=== PATIENT | female | born 1960 | race Caucasian/White ===

== ENCOUNTER 2024-04-21 15:19 | Outpatient (AMB) | payer OTHER, SELFPAY ==
--- NOTE | 2024-04-21 15:22 | MHC.PC.OV ---
Vital Signs 04/21/24 15:23 Height 5 ft 6 in Weight 135 lb 8 oz BMI 21.9 BP 104/64 Blood Pressure Location Rt brachial Position Sitting Respiration 14 Pulse 68 Pulse Source Pulse Oximeter Temp 97.8 F Temp Source Temporal Artery Scan Pulse Oximetry (%) 99 Oxygen Delivery Method Room Air Intake Visit Reasons: establish care Intake Note: Patient woud like to see if provider would be able to check right ear, and would like to discuss thyroid. Opener Verifier [employer] Required: No Accompanied by: Self / Same As Patient Allergies benzoyl peroxide Adverse Reaction (Intermediate, Verified 04/21/24 15:50) Rash wheat Adverse Reaction (Intermediate, Verified 04/21/24 15:50) Rash erythromycin base Adverse Reaction (Verified 04/21/24 15:50) Rash Medication List - Last Reconciled 04/21/24 by Za Marte, ADMISSIONS REPRESENTATIVE- cetirizine (Zyrtec) 10 mg PO DAILY PRN cholecalciferol (vitamin D3) 50 mcg PO DAILY estradiol 1 patch transdermal .Qwk ezetimibe 10 mg PO DAILY levothyroxine 50 mcg PO DAILY liothyronine 15 mcg PO QAM paroxetine HCl 10 mg PO DAILY progesterone micronized 100 mg PO QAM zolpidem 2.5 mg PO BEDTIME PRN Tobacco use date assessed: 04/21/24 Dental Screening Dental Screen Date: 04/21/24 Did you have a dental visit in the last 12 months?: Yes Did you have a dental problem in the last 6 months where you did not have access to dental care?: No Was dental information given to patient?: Patient has dentist HPI HPI Comments History of Present Illness Details 63 y/o F hypothyroid, MEHRAN, Hyperlipidemia, seasonal allergies, Vit D def, menopause, [place] with hearing aides Surgery: c section, malignant mole & sentinal node removal (Dr Fortune), bilat cataract extraction Health Maintenance: Colon Mammo PAP DEXA Reports UTD on all of her HM items. I will have to request records. 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 Right ear while on the phone at work, does not think she is hearing right. Does wear hearing aides. Went to [facility] told of blockage. No at home tx. Hypothyroid - reports euthyroid on last labs done in March. Does not follow w/ Endo.Denies hx of thyroidectomy, nodules or imaging. Ca any sx. MEHRAN - well controlled w/ paxil. Not in counseling. Ambien PRN w sparing use. Feels paxil helps her sleep. Edu on cardiac risks w/ this medication. HLD - on zetia. Reports last labs done 03/2024. 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 1. Little interest or pleasure in doing things: not at all 2. Feeling down, depressed, or hopeless: not at all 3. Trouble falling or staying asleep, or sleeping too much: several days 4. Feeling tired or having little energy: several days 5. Poor appetite or overeating: several days 6. Feeling bad about yourself - or that you are a failure or have let yourself or your family down: not at all 7. Trouble concentrating on things, such as reading the newspaper or watching television: not at all 8. Moving or speaking so slowly that other people could have noticed. Or the opposite - being so fidgety or restless that you have been moving around a lot more than usual: not at all 9. Thoughts that you would be better off or of hurting yourself in some way: not at all Total score: 3 Depression Screening Interpretation: Negative Depression Screening Done: Yes 83874 - PHQ-9 Billing: Yes Source: Developed by Drs. Adria Ruby, Dari Christy, Dominic Sheridan and colleagues, with an educational michelle from [employer] Thrive Questionnaire Date Thrive assessed: 04/21/24 I am a: Patient What is your living situation today?: I have a steady place to live Within the past 12 months, did the food you bought not last and you didn't have the money to get more?: Never true Within the past 12 months, did you worry whether your food would run out before you got money to buy more?: Never true Do you have trouble paying for medicines?: No Do you have trouble getting transportation to medical appointments?: No Do you have trouble paying your heating and electricity bill?: No Do you have trouble taking care of your child, family member or friend?: No Do you have trouble with day-to-day activities such as bathing, preparing meals, shopping, managing finances, etc.?: No Are you currently unemployed and looking for a job?: No Are you interested in more education?: No Please select the resources that you would like help with: None Currently or been in a relationship where the following occur: no concerns reported THRIVE Score: 0 AUDIT C Alcohol Use Questionnaire (AUDIT-C) 1. How often do you have a drink containing alcohol?: Monthly or less 2. How many drinks containing alcohol do you have on a typical day when you are drinking?: 1 or 2 3. How often do you have six or more drinks on one occasion?: Never Total Score: 1 Score Reviewed/Action Taken: Yes MEHRAN-7 AMB Questionnaire MEHRAN-7 Date MEHRAN - 7 assessed: 04/21/24 Feeling nervous, anxious, or on edge: 1 = Several days Not being able to stop or control worryin = Not at all Worrying too much about different things: 1 = Several days Trouble relaxin = Not at all Being so restless that it is hard to sit still: 0 = Not at all Becoming easily annoyed or irritable: 1 = Several days Feeling afraid as if something awful might happen: 0 = Not at all Total MEHRAN-7 score (0-4 normal; 5-9 mild; 10-14 moderate; 15-21 severe): 3 Source: Developed by Drs. Adria Ruby, Dari Christy, Dominic Sheridan and colleagues, with an educational michelle from [employer] MEHRAN-7 Assessment Billing MEHRAN-7 Assessment Tool: MEHRAN-7 Assessment 03674 Review of Systems Const All systems reviewed & are unremarkable except as noted in HPI and below Physical exam (Primary Care) Vital Signs: Last Vital Signs Temp 97.8 F 04/21/24 15:23 Pulse 68 04/21/24 15:23 Resp 14 04/21/24 15:23 BP 104/64 04/21/24 15:23 Pulse Ox 99 04/21/24 15:23 Oxygen Delivery Method Room Air 04/21/24 15:23 BMI result Body Mass Index 21.9 Tobacco/Smoking Status: Tobacco use Status Tobacco use date assessed 04/21/24 04/21/24 15:44 Patient Tobacco Use Status Never used Tobacco 04/21/24 15:44 e-Cigarette/Vaping Use Never Used 04/21/24 15:44 PHQ-9: PHQ-9 Score PHQ-9: Total score 3 04/21/24 15:51 Depression Screening Interpretation: Negative Thrive Assessment: Date of Thrive Assessment Date Thrive assessed 04/21/24 04/21/24 15:44 Currently or been in a relationship where the following occur: no concerns reported Const Other: awake alert, pleasant Cerumen impaction right EAC removed during visit w/o complication. TM intact and clear. 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 Continue Code(s): F41.1 - Generalized anxiety disorder (4) Screening for diabetes mellitus: Code(s): Z13.1 - Encounter for screening for diabetes mellitus (5) Impacted cerumen of right ear: Code(s): H61.21 - Impacted cerumen, right ear Plan: removal today Orders: Orders Comprehensive [place]. Panel Fast 06/28/24 E03.9 - Hypothyroidism, unspecified, E78.00 - Pure hypercholesterolemia, unspecified, F41.1 - Generalized anxiety disorder, Z13.1 - Encounter for screening for diabetes mellitus Lipid Panel 06/28/24 E03.9 - Hypothyroidism, unspecified, E78.00 - Pure hypercholesterolemia, unspecified, F41.1 - Generalized anxiety disorder, Z13.1 - Encounter for screening for diabetes mellitus TSH reflex Free T4 06/28/24 E03.9 - Hypothyroidism, unspecified, E78.00 - Pure hypercholesterolemia, unspecified, F41.1 - Generalized anxiety disorder, Z13.1 - Encounter for screening for diabetes mellitus Hemoglobin A1c 06/28/24 E03.9 - Hypothyroidism, unspecified, E78.00 - Pure hypercholesterolemia, unspecified, F41.1 - Generalized anxiety disorder, Z13.1 - Encounter for screening for diabetes mellitus Microalbumin, Random (w Creat) 06/28/24 E03.9 - Hypothyroidism, unspecified, E78.00 - Pure hypercholesterolemia, unspecified, F41.1 - Generalized anxiety disorder, Z13.1 - Encounter for screening for diabetes mellitus Vitamin D 1,25 dihydroxy 06/28/24 E03.9 - Hypothyroidism, unspecified, E78.00 - Pure hypercholesterolemia, unspecified, F41.1 - Generalized anxiety disorder, Z13.1 - Encounter for screening for diabetes mellitus Patient Instructions: Please RTO in Jul, with fasting labs done 1 week before Sign up for patient portal - best way to access the office. Cont all meds as precribed. 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
[2024-04-21 15:23] VITALS: BP 104/64; PULSE 68; RESP 14; TEMP 36.6; O2SAT 99; BMI 21.9
== END 2024-04-21 16:14 | disposition home or self-care (01) ==
PROVIDERS: Visit Provider Nurse Practitioner Family
DX: E06.3 Autoimmune thyroiditis (principal); E78.00 Pure hypercholesterolemia, unspecified; H61.21 Impacted cerumen, right ear; F41.1 Generalized anxiety disorder; Z13.1 Encounter for screening for diabetes mellitus
CPT/HCPCS: 69210; 99204

== ENCOUNTER 2024-07-13 08:25 | Outpatient (REF) | payer OTHER, SELFPAY ==
[2024-07-13 11:44] LABS: Estimated Average Glucose 111 mg/dL; Hemoglobin A1c % 5.5 % (<6.0)
[2024-07-13 12:24] LABS: Creatinine Urine 113.35 mg/dL
[2024-07-13 15:31] LABS: Alanine Aminotransferase 14 U/L (0-31); Albumin Level 4.1 g/dL (3.5-5.0); Alkaline Phosphatase 47 U/L (39-117); Anion Gap 8 (12-20); Aspartate Amino Transferase 23 U/L (5-31); Bilirubin Total 0.4 mg/dL (0.0-1.0); Blood Urea Nitrogen 13 mg/dL (9-16); Calcium 9.5 mg/dL (8.4-10.2); Carbon Dioxide 31 mmol/L (22-29); Chloride 107 mmol/L (96-108); Cholesterol 218 mg/dL (<200); Estimated Glomerular Filt Rate > 60; Glucose Fasting 85 mg/dL (60-99); HDL Cholesterol 66 mg/dL (>40); LDL Cholesterol Calculated 141 mg/dL (<100); Potassium 4.3 mmol/L (3.3-5.1); Sodium 142 mmol/L (135-145); TSH reflex Free T4 2.53 uIU/mL (0.32-4.0); Total Protein 6.5 g/dL (6.5-8.0); Triglycerides 57 mg/dL (<150)
[2024-07-17 05:13] LABS: VITAMIN D (1,25 OH) D3 43 pg/mL; Vit D (1,25-Dihydroxy) Total 43 pg/mL (18-72); Vitamin D (1,25 OH) D2 <8 pg/mL
== END 2024-07-13 08:26 | disposition home or self-care (01) ==
LOC: HO.WFDLDS 08:25
PROVIDERS: Visit Provider Nurse Practitioner Family
DX: F41.1 Generalized anxiety disorder (principal); Z13.1 Encounter for screening for diabetes mellitus; E78.00 Pure hypercholesterolemia, unspecified; E03.9 Hypothyroidism, unspecified
CPT/HCPCS: 36415; 80053; 80061; 82043; 82570; 82652; 83036; 84443

== ENCOUNTER 2024-07-19 15:18 | Outpatient (AMB) | payer OTHER, SELFPAY ==
--- NOTE | 2024-07-19 13:58 | A.OFFVIS_ITS ---
Intake Intake Visit Reasons: thyroid, labs, hld, MEHRAN Allergies benzoyl peroxide Adverse Reaction (Intermediate, Verified 04/21/24 15:50) Rash wheat Adverse Reaction (Intermediate, Verified 04/21/24 15:50) Rash erythromycin base Adverse Reaction (Verified 04/21/24 15:50) Rash PFSH Medical History (Updated 04/22/24 @ 07:22 by Za Marte, [facility]) H/O Donnie thyroiditis delivery delivered Anxiety High cholesterol Hypothyroidism Surgical History (Updated 04/21/24 @ 15:40 by DAVIDSON Cooley) H/O cataract removal with insertion of prosthetic lens History of removal of skin mole Family History Mother Diabetes Father Diabetes Family/Other Diabetes History of Donnie thyroiditis Social History Housing: House Patient Tobacco Use Status: Never used Tobacco e-Cigarette/Vaping Use: Never Used service: No Current occupational status: employed 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
--- NOTE | 2024-07-19 15:19 | MHC.PC.OV ---
Vital Signs 07/19/24 15:22 Height 5 ft 6 in Weight 134 lb 6 oz BMI 21.7 BP 102/68 Blood Pressure Location Rt brachial Position Sitting Respiration 14 Pulse 57 Pulse Source Pulse Oximeter Pulse Oximetry (%) 94 Oxygen Delivery Method Room Air Intake Visit Reasons: thyroid, labs, hld, MEHRAN Intake Note: follow up on labs Allergies benzoyl peroxide Adverse Reaction (Intermediate, Verified 07/19/24 15:41) Rash wheat Adverse Reaction (Intermediate, Verified 07/19/24 15:41) Rash erythromycin base Adverse Reaction (Verified 07/19/24 15:41) Rash Medication List - Last Reconciled 07/19/24 by Za Marte, LAND SURVEYING MANAGER-BC cetirizine (Zyrtec) 10 mg PO DAILY PRN cholecalciferol (vitamin D3) 50 mcg PO DAILY estradiol 1 patch transdermal .Qwk ezetimibe 10 mg PO DAILY levothyroxine 50 mcg PO DAILY liothyronine 15 mcg PO QAM paroxetine HCl 10 mg PO DAILY progesterone micronized 100 mg PO QAM zolpidem 2.5 mg PO BEDTIME PRN Tobacco use date assessed: 07/19/24 Dental Screening Dental Screen Date: 07/19/24 Did you have a dental visit in the last 12 months?: Yes Did you have a dental problem in the last 6 months where you did not have access to dental care?: No Was dental information given to patient?: Patient has dentist HPI HPI Comments History of Present Illness Details 63 y/o F with MEHRAN, Hyperlipidemia, seasonal allergies, Vit D def, menopause, [place] with hearing aides, osteoporosis, skin cancer, Donnie's thyroiditis, primary insomnia Surgery: c section, malignant mole & sentinal node removal (Dr Fortune), bilat cataract extraction 2021 Social has 1 son Family history: Father age 85, COPD; siblings 1 brother, 3 sisters brother with diabetes, sister with thyroid disease, sister with depression; mother alive with hypertension; brother alive with diabetes; Health Maintenance: Pap smear April 2022 negative per report Mammogram 2019 Colonoscopy 10/2016 DEXA May/2021, repeat 06/2024 results pending managed by Obgyn Eye exam 12/30/2021 Declined flu vaccine Specialists: Derm - [place] Derm routine visits 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 Since last office visit she has been tolerating compliant of all of her therapies. She is taking as directed. She denies any neuro or cardiac complaints. Denies any complaints related to thyroid. Mood is stable. Reports that she recently had a bone density done and we will be reviewing the results at her next marketing budget analyst appointment which is next month. The following labs were reviewed with her today: Labs from 07/13/2024 show a normal electrolytes, normal renal function, normal fasting glucose, hemoglobin A1c 5.5%, normal LFTs, total cholesterol of 218, LDL 141, HDL 66, vitamin-D pending, TSH 2.53, normal urine microalbumin creatinine ratio Elevated apolipoprotein B 136 done 05/06/2023, at the same time her total cholesterol was 281, triglycerides are 62, HDL 79, LDL 190 Labs from 12/02/2023 show total cholesterol 213, triglycerides 66 HDL 68 LDL 144, cardio CRP 6.15 Labs 03/16/2024 show a total cholesterol of 2 2, triglycerides 63, HDL 65, LDL 126, APO B 97 Exam awake alert, pleasant MMM Thyroid nontender, trachea midline RRR LS CTAB No hepatomegaly No edema bilateral lower extremities, normal pedal pulses Plan Continue all medications as directed. Discuss potential referral to Cardiology in the future to see about alternative treatments for hyperlipidemia. She will consider this let me know if she is interested in the future. At this time continue Zetia as she reports side effects to statins in the past. Educated again about her elevated cardiovascular risk given the positive AP O and elevated cardio CRP. She is aware and accepting of these risks. She continues to lead a healthy lifestyle to include diet and exercise. Return to the office in December for complete physical exam, sooner as needed. Previous medical records from [facility] received and reviewed today. This note is constructed using voice recognition software. While every effort has been made to ensure accuracy in hat block bench hand, still errors may have been included Sometimes, these errors may affect the content or meaning of the given sentence . Total time spent caring for the patient today was 30 minutes. This includes time spent before the visit reviewing the chart, time spent during the visit, and time spent after the visit on documentation [facility] Medical History (Updated 07/19/24 @ 16:10 by Za Marte, LAND SURVEYING MANAGER-) H/O Donnie thyroiditis delivery delivered Anxiety High cholesterol Hypothyroidism Surgical History (Updated 04/21/24 @ 15:40 by DAVIDSON Cooley) H/O cataract removal with insertion of prosthetic lens History of removal of skin mole Family History Mother Diabetes Father Diabetes Family/Other Diabetes History of Donnie thyroiditis Social History Housing: House Patient Tobacco Use Status: Never used Tobacco e-Cigarette/Vaping Use: Never Used service: No Current occupational status: employed 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 1. Little interest or pleasure in doing things: not at all 2. Feeling down, depressed, or hopeless: not at all 3. Trouble falling or staying asleep, or sleeping too much: several days 4. Feeling tired or having little energy: not at all 5. Poor appetite or overeating: not at all 6. Feeling bad about yourself - or that you are a failure or have let yourself or your family down: not at all 7. Trouble concentrating on things, such as reading the newspaper or watching television: several days 8. Moving or speaking so slowly that other people could have noticed. Or the opposite - being so fidgety or restless that you have been moving around a lot more than usual: not at all 9. Thoughts that you would be better off or of hurting yourself in some way: not at all Total score: 2 Depression Screening Interpretation: Negative Depression Screening Done: Yes 44466 - PHQ-9 Billing: Yes Source: Developed by Drs. Adria Ruby, Dari Christy, Dominic Sheridan and colleagues, with an educational michelle from [employer]. Thrive Questionnaire Date Thrive assessed: 07/19/24 I am a: Patient What is your living situation today?: I have a steady place to live Within the past 12 months, did the food you bought not last and you didn't have the money to get more?: Never true Within the past 12 months, did you worry whether your food would run out before you got money to buy more?: Never true Do you have trouble paying for medicines?: No Do you have trouble getting transportation to medical appointments?: No Do you have trouble paying your heating and electricity bill?: No Do you have trouble taking care of your child, family member or friend?: No Do you have trouble with day-to-day activities such as bathing, preparing meals, shopping, managing finances, etc.?: No Are you currently unemployed and looking for a job?: No Are you interested in more education?: No Please select the resources that you would like help with: None THRIVE Score: 0 MEHRAN-7 AMB Questionnaire MEHRAN-7 Date MEHRAN - 7 assessed: 07/19/24 Feeling nervous, anxious, or on edge: 0 = Not at all Not being able to stop or control worryin = Not at all Worrying too much about different things: 0 = Not at all Trouble relaxin = Not at all Being so restless that it is hard to sit still: 0 = Not at all Becoming easily annoyed or irritable: 0 = Not at all Feeling afraid as if something awful might happen: 0 = Not at all Total MEHRAN-7 score (0-4 normal; 5-9 mild; 10-14 moderate; 15-21 severe): 0 Source: Developed by Drs. Adria Ruby, Dari Christy, Dominic Sheridan and colleagues, with an educational michelle from [employer]. MEHRAN-7 Assessment Billing MEHRAN-7 Assessment Tool: MEHRAN-7 Assessment 36883 Physical exam (Primary Care) Vital Signs: Last Vital Signs Pulse 57 07/19/24 15:22 Resp 14 07/19/24 15:22 BP 102/68 07/19/24 15:22 Pulse Ox 94 07/19/24 15:22 Oxygen Delivery Method Room Air 07/19/24 15:22 BMI result Body Mass Index 21.7 Tobacco/Smoking Status: Tobacco use Status Tobacco use date assessed 07/19/24 07/19/24 15:23 Patient Tobacco Use Status Never used Tobacco 07/19/24 15:23 e-Cigarette/Vaping Use Never Used 07/19/24 15:23 PHQ-9: PHQ-9 Score PHQ-9: Total score 2 07/19/24 15:27 Depression Screening Interpretation: Negative Thrive Assessment: Date of Thrive Assessment Date Thrive assessed 07/19/24 07/19/24 15:27 Assessment and Plan Assessment & Plan (1) Hypothyroidism: Comment: on levothyroxine and liothyronine; Code(s): E03.9 - Hypothyroidism, unspecified Qualifiers: 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 Continue Code(s): F41.1 - Generalized anxiety disorder (4) Osteoporosis: Code(s): M81.0 - Age-related osteoporosis without current pathological fracture Qualifiers: Osteoporosis type: age-related Presence of current pathological fracture: without current pathological fracture Qualified Code(s): M81.0 - Age-related osteoporosis without current pathological fracture (5) Cardiac risk counseling: Comment: Elevated apolipoprotein B 136 done 05/06/2023, at the same time her total cholesterol was 281, triglycerides are 62, HDL 79, LDL 190 Labs from 12/02/2023 show total cholesterol 213, triglycerides 66 HDL 68 LDL 144, cardio CRP 6.15 Labs 03/16/2024 show a total cholesterol of 2 2, triglycerides 63, HDL 65, LDL 126, APO B 97 Code(s): Z71.89 - Other specified counseling (6) Vitamin D deficiency: Code(s): E55.9 - Vitamin D deficiency, unspecified (7) Primary insomnia: Code(s): F51.01 - Primary insomnia Orders: Orders Comprehensive [place]. Panel Fast 11/10/24 E03.8 - Other specified hypothyroidism, E06.3 - Autoimmune thyroiditis, E78.00 - Pure hypercholesterolemia, unspecified Hemoglobin A1c 11/10/24 E03.8 - Other specified hypothyroidism, E06.3 - Autoimmune thyroiditis, E78.00 - Pure hypercholesterolemia, unspecified Lipid Panel 11/10/24 E03.8 - Other specified hypothyroidism, E06.3 - Autoimmune thyroiditis, E78.00 - Pure hypercholesterolemia, unspecified Microalbumin, Random (w Creat) 11/10/24 E03.8 - Other specified hypothyroidism, E06.3 - Autoimmune thyroiditis, E78.00 - Pure hypercholesterolemia, unspecified TSH reflex Free T4 11/10/24 E03.8 - Other specified hypothyroidism, E06.3 - Autoimmune thyroiditis, E78.00 - Pure hypercholesterolemia, unspecified Vitamin D 1,25 dihydroxy 11/10/24 E03.8 - Other specified hypothyroidism, E06.3 - Autoimmune thyroiditis, E78.00 - Pure hypercholesterolemia, unspecified Review Flu Vaccine not done: patient reason Coding Level of Care Code Est Pt Level 4 (59625) Diagnoses 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
[2024-07-19 15:22] VITALS: BP 102/68; PULSE 57; RESP 14; O2SAT 94; BMI 21.7
== END 2024-07-19 15:53 | disposition home or self-care (01) ==
PROVIDERS: Visit Provider Nurse Practitioner Family
DX: E03.8 Other specified hypothyroidism (principal); E06.3 Autoimmune thyroiditis; E78.00 Pure hypercholesterolemia, unspecified; F41.1 Generalized anxiety disorder; M81.0 Age-related osteoporosis without current pathological fracture; Z71.89 Other specified counseling; E55.9 Vitamin D deficiency, unspecified; F51.01 Primary insomnia
CPT/HCPCS: 99214

== ENCOUNTER 2024-10-13 09:55 | Outpatient (RCR) | payer OTHER, SELFPAY | END 2024-11-23 14:16 | disposition home or self-care (01) | LOC: HO.PT 09:55 | PROVIDERS: PCP Nurse Practitioner Family; Visit Provider Nurse Practitioner Women's Health | DX: M62.9 Disorder of muscle, unspecified (principal) | CPT/HCPCS: 97110; 97112; 97161 ==

== ENCOUNTER 2024-12-10 09:18 | Outpatient (REF) | payer OTHER, SELFPAY ==
[2024-12-10 12:30] LABS: Microalbum/Creatinine Ratio Ur 11.8 ug/mg cr (<30)
[2024-12-10 12:49] LABS: Estimated Average Glucose 111 mg/dL; Hemoglobin A1C 135.6867 umol/L; Hemoglobin A1c % 5.5 % (<6.0); Total Hemoglobin (HGBA1C) 3717.1284 umol/L
[2024-12-10 13:06] LABS: Alanine Aminotransferase 19 U/L (0-31); Albumin Level 4.2 g/dL (3.5-5.0); Alkaline Phosphatase 54 U/L (39-117); Anion Gap 9 (12-20); Aspartate Amino Transferase 30 U/L (5-31); Bilirubin Total 0.4 mg/dL (0.0-1.0); Blood Urea Nitrogen 16 mg/dL (9-16); Calcium 9.9 mg/dL (8.4-10.2); Carbon Dioxide 29 mmol/L (22-29); Chloride 107 mmol/L (96-108); Cholesterol 209 mg/dL (<200); Estimated Glomerular Filt Rate > 60; Glucose Fasting 90 mg/dL (60-99); HDL Cholesterol 69 mg/dL (>40); LDL Cholesterol Calculated 129 mg/dL (<100); Potassium 4.4 mmol/L (3.3-5.1); Sodium 141 mmol/L (135-145); Triglycerides 57 mg/dL (<150)
[2024-12-10 13:28] LABS: TSH reflex Free T4 3.85 uIU/mL (0.32-4.0)
[2024-12-14 17:18] LABS: VITAMIN D (1,25 OH) D3 56 pg/mL; Vit D (1,25-Dihydroxy) Total 56 pg/mL (18-72); Vitamin D (1,25 OH) D2 <8 pg/mL
== END 2024-12-10 09:19 | disposition home or self-care (01) ==
LOC: HO.WFDLDS 09:18
PROVIDERS: Visit Provider Nurse Practitioner Family
DX: E03.8 Other specified hypothyroidism (principal); E06.3 Autoimmune thyroiditis; E78.00 Pure hypercholesterolemia, unspecified; Z13.1 Encounter for screening for diabetes mellitus
CPT/HCPCS: 36415; 80053; 80061; 82043; 82570; 82652; 83036; 84443

== ENCOUNTER → 2024-12-15 11:49 | Outpatient (BNVA) | payer OTHER, SELFPAY | PROVIDERS: PCP Nurse Practitioner Family; Visit Provider Nurse Practitioner Family | DX: Z00.00 Encounter for general adult medical examination without abnormal findings (principal); F41.1 Generalized anxiety disorder; E78.00 Pure hypercholesterolemia, unspecified; E03.8 Other specified hypothyroidism; E06.3 Autoimmune thyroiditis; M81.0 Age-related osteoporosis without current pathological fracture; E55.9 Vitamin D deficiency, unspecified; K59.09 Other constipation; B35.1 Tinea unguium; Z79.899 Other long term (current) drug therapy; Z28.21 Immunization not carried out because of patient refusal | CPT/HCPCS: 96127 ==